=== PATIENT | female | born 1995 | race Caucasian/White ===

== ENCOUNTER → 2021-01-06 14:56 | Outpatient (CLI) | payer OTHER, MEDICAID, SELFPAY ==
[2021-01-06 15:52] LABS: COVID19 -Nasal RAPID Negative (Negative)
== END ==
PROVIDERS: Visit Provider Nurse Practitioner
DX: Z20.822 Contact with and (suspected) exposure to COVID-19 (principal); R05 Cough; J02.9 Acute pharyngitis, unspecified
CPT/HCPCS: 87635

== ENCOUNTER → 2021-02-26 09:25 | Outpatient (CLI) | payer OTHER, MEDICAID, SELFPAY | PROVIDERS: Visit Provider Nurse Practitioner Family | DX: N34.3 Urethral syndrome, unspecified (principal); N89.8 Other specified noninflammatory disorders of vagina | CPT/HCPCS: 81002; 87086; 87210 ==

== ENCOUNTER 2022-08-04 09:02 | Emergency (ER) | payer OTHER, MEDICAID, SELFPAY ==
[2022-08-04 09:05] VITALS: BP 145/86; PULSE 69; RESP 18; TEMP 37; O2SAT 99; BMI 25.8
--- NOTE | 2022-08-04 09:50 | ED.NEUROSD ---
HPI - Neuro Symptoms/Deficit General Chief Complaint: Neuro Symptoms/Deficit Stated Complaint: sent by [facility] one pupil dialated Time Seen by Provider: 08/04/22 09:13 Source: patient Mode of arrival: Wheelchair History of Present Illness HPI Narrative: Patient is a healthy 27-year-old female who presents with right eye abnormality. 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 She said she felt like her right eye was heavy she looked in the rearview mirror on her way to work and notes that her right eye was bigger. She went to the walk-in clinic and then sent here for further evaluation. She is not had any head trauma she has no headache nausea vomiting numbness tingling or weakness. Is not wear corrective lenses. On Anticoagulants: No Related Data Home Medications Medication Instructions Recorded Confirmed No Known Home Medications 08/04/22 08/04/22 Allergies Allergy/AdvReac Type Severity Reaction Status Date / Time No Known Drug Allergies Allergy Verified 08/04/22 09:12 Review of Systems Review of Systems ROS Unobtainable: All systems reviewed & are unremarkable except as noted in HPI and below Hematologic/Lymphatic On Anticoagulants: No Patient History Social History Smoking Status: Former smoker Smoking Status: Former smoker alcohol intake frequency: 0-2 drinks per day Substance Use Type: does not use Exam Initial Vital Signs Initial Vital Signs: Vital Signs Temperature 98.6 F 08/04/22 09:05 Pulse Rate 69 08/04/22 09:05 Respiratory Rate 18 08/04/22 09:05 Blood Pressure 145/86 H 08/04/22 09:05 Pulse Oximetry 99 08/04/22 09:05 Oxygen Delivery Method Room Air 08/04/22 09:05 GENERAL: Alert well-appearing 27-year-old female and in no acute distress. HEENT: Head atraumatic,EOMI, pupils reactive, face symmetric, moist mucous membranes EYE: Right:Extraocular muscles intact right eye pupil size about 7 mm nonreactive to light red reflex intact, ultrasound does not show any retinal detachment or vitreous humor detachment pressure 26mmHg left: EOMI, people equal round and reactive to light, red reflex present, pressure 25mmHg CARDIOVASCULAR: Regular rate and rhythm without murmurs, rubs or gallops. RESPIRATORY: Breath sounds equal bilaterally, no wheezes rales or rhonchi. ABDOMEN: Soft, nontender. Normoactive bowel sounds all 4 quadrants. No guarding or rebound. EXTREMITIES: Normal range of motion, no clubbing or edema. Neurovascularly intact NEUROLOGICAL: Alert and oriented x4.Normal gait and speech. Cranial nerves II through XII grossly intact. Good ggeofc-sx-ngcm, good yjry-vi-dstc, strength equal bilaterally, no dysarthria or aphasia, sensation in tact to soft touch bilaterally, no visual changes, no facial droop SKIN: Warm, dry, no laceration, no petechiae, no rashes or lesions. Course Orders Ordered: ED Orders 08/04/22 10:20 CBC Auto Diff [Complete Blood Count AUTO DIFF] Stat CMP [Comprehensive Metabolic Panel] Stat Discontinued Medications Fluorescein Sodium (Fluorescein 1 Mg Strip) 1 mg EYE-BOTH NOW ONE Stop: 08/04/22 09:57 Last Admin: 08/04/22 10:01 Dose: 1 mg Documented By: OJ Proparacaine HCl (Proparacaine 0.5% Ophth Ashley) 1 drops EYE-BOTH NOW ONE Stop: 08/04/22 09:57 Last Admin: 08/04/22 10:01 Dose: 1 1000units Documented By: OJ Vital Signs Vital signs: Vital Signs - 8 hr 08/04/22 12:30 08/04/22 12:46 08/04/22 12:46 Pulse Rate 68 Blood Pressure 120/71 117/67 Pulse Oximetry 100 MDM - Neuro Symptoms/Deficit Lab Data 08/04/22 10:20 08/04/22 10:20 Labs: Lab Results 08/04/22 08/04/22 Range/Units 10:20 10:20 WBC 6.7 (4.5-11.0) X10^3/uL RBC 4.57 (4.0-5.2) X10^6/uL Hgb 14.0 (12.0-16.0) g/dL Hct 41.1 (36-46) % MCV 89.9 (80-100) fL MCH 30.7 (26-34) PG MCHC 34.1 (30-36) % RDW 13.1 (11.6-14.8) % Plt Count 247 (150-400) X10^3/uL Neut % (Auto) 62.4 (50-75) % Lymph % (Auto) 25.3 (25-40) % [place] % (Auto) 9.2 (3-14) % Eos % (Auto) 2.5 (2-4) % Baso % (Auto) 0.6 (0-2) % Neut # (Auto) 4200 (7880-1829) /uL Lymph # (Auto) 1700 (3144-2673) /uL [place] # (Auto) 600 (0-900) /uL Eos # (Auto) 200 (0-450) /uL Baso # (Auto) 0 (0-100) /uL Sodium 140 (137-145) mmol/L Potassium 3.6 (3.4-5.1) mmol/L Chloride 105 (98-107) mmol/L Carbon Dioxide 26 (22-32) mmol/L BUN 9 (7-17) mg/dL Creatinine 0.66 (0.52-1.04) mg/dL Estimated GFR > 60 (>60) mL/min BUN/Creatinine Ratio 13.6 (6-22) Glucose 88 (70-100) mg/dL Calcium 9.2 (8.4-10.2) mg/dL Total Bilirubin 0.8 (0.2-1.3) mg/dL AST 25 (14-36) IU/L ALT 19 (<35) IU/L Alkaline Phosphatase 74 (38-126) U/L Total Protein 8.2 (6.3-8.2) g/dL Albumin 4.8 (3.5-5.0) g/dL Globulin 3.4 (1.7-4.1) g/dL Albumin/Globulin Ratio 1.4 (1.0-2.8) Point of Care Testing Test Results Negative Urine Dip Bedside Urine Glucose Negative Bedside Urine Bilirubin - Negative Bedside Urine Ketone - Negative Urine Specific [place] 1.010 Bedside Urine Occult Blood - Negative Bedside Urine pH 8.0 Bedside Urine Protein - Negative Bedside Urine Urobilinogen - Negative Bedside Urine Nitrite - Negative Bedside Urine Leukocytes - Negative Esterase Imaging Data CTA - brain/neck: Radiologist's Impression: PROCEDURE:? CT ANGIO HEAD AND NECK ? INDICATIONS:? right dilated pupil no trauma ? TECHNIQUE:? Pre-contrast 4.5 mm thick sections acquired from the foramen magnum to the vertex.? After the administration of intravenous contrast, 1 mm thick sections acquired from the aortic arch through the [place] of [place].? Post-contrast 4.5 mm thick sections then re-acquired from the foramen magnum to the vertex.? 3-dimensional czrtgol-zknioqbbf-fjuxuaopok (MIP) and/or volume rendering reformats were acquired of the central intracranial vasculature and neck separately. For radiation dose reduction, the following was used:? automated exposure control, adjustment of mA and/or kV according to patient size.? ? COMPARISON:? None. ? FINDINGS:? Image quality:? Excellent.? ? BRAIN:? CSF spaces:? Ventricles are normal in size and shape.? Basal cisterns are patent.? No extra-axial fluid collections.? ? Brain:? No midline shift.? No intracranial bleeds or masses.? [place]-white matter interface appears intact.? ? Skull and face:? Calvarium and facial bones appear intact, without suspicious lesions.? Orbits appear normal.? ? Sinuses:? Sinuses and mastoids are clear.? ? HEAD CT ANGIOGRAPHY:? Anterior circulation:? Intracranial internal carotid arteries are normal in size and flow.? The flow within the paired anterior cerebral arteries is normal and symmetric.? The flow within the middle cerebral arteries is normal and symmetric.? The anterior communicating artery is seen.? No aneurysms are seen.? ? Posterior circulation:? Visualized portions of the vertebral arteries demonstrate normal caliber, and join to form a normal appearing basilar artery.? Flow within the posterior cerebral arteries is normal and symmetric.? No aneurysms are seen.? ? NECK CT ANGIOGRAPHY:? Carotid system:? The great vessels demonstrate a conventional anatomy as they arise from the aortic arch.? The origins of the common carotid arteries appear patent.? The common carotid arteries demonstrate normal caliber and courses.? The bifurcation regions are both widely patent.? The internal carotid arteries demonstrate normal calibers and courses.? ? Posterior circulation:? The origins of the vertebral arteries both appear widely patent.? The more superior extracranial portions of both vertebral arteries also demonstrate normal courses and calibers.? They join to form a normal appearing basilar artery.? ? Soft tissues:? Visualized neck soft tissues demonstrate no suspicious abnormalities.? ? Bones:? No suspicious bony lesions.? Visualized cervical spine appears normally aligned.? IMPRESSION:? ? 1. No acute intracranial process. ? 2. No areas of hemodynamically significant stenosis, vascular occlusion or aneurysmal dilation within the anterior circulation. ? 3. No areas of hemodynamically significant stenosis, vascular occlusion or aneurysmal dilation within the posterior circulation. ? 4. No areas of hemodynamically significant stenosis, vascular occlusion or aneurysmal dilation within the neck vasculature. ? Any quantitative measurements of stenosis were performed using NASCET criteria.? ? ? Dictated by: Batsheva Shultz M.D. on 08/04/2022 at 11:41 ?? MDM Narrative Medical decision making narrative: Patient 27-year-old female who has fixed dilated right pupil around 7 mm is nonreactive to light. Left eye is reactive. CT angio does not show any kind of aneurysm. Pressures are within normal limits extraocular muscles are intact. Patient is asked multiple times there thin any chemical in her eye which would explain a pharmacologic nonreactive dilated pupil. However she is adamant that she did not put anything or rub her eye. 12:30 Dr. Mendosa on-call quill picking machine operator cases discussed reports that patient would probably benefit from in exam however she does not take the patient's insurance. And she recommends that patient be seen at [facility] 12:40 [facility] senior linux unix administrator is updated on patient she has spoken to Dr. Hui who agrees to see the patient at 3:25 p.m. Discharge Plan Departure Patient Disposition: Home Clinical Impression: Fixed dilated pupil of right eye Instructions: DI for Visual Field Disturbances Activity Restrictions/Additional Instructions: You have an appointment today at [facility], in [place], Dr. Hui at 3:25 p.m. At this time workup in the emergency department does not show any abnormality. Concern that there may be some chemical or something in her eye. He will need to see a specific quill picking machine operator for further eye evaluation [address] [place] [address] Phone:[phone] Prescriptions: No Action No Known Home Medications Referrals: Li Lemus, TELECOM SPECIALIST-BC [Primary Care Provider] - Stand Alone Forms: Patient Portal/API
[2022-08-04] MEDS: PROPARACAINE 0.5% OPHTH SOL 1 DROPS EYE-BOTH (10:01)
[2022-08-04] MEDS: FLUORESCEIN 1 MG STRIP EYE-BOTH (10:01)
--- NOTE | 2022-08-04 10:11 | DI.CT.S_ITS ---
PROCEDURE: CT ANGIO HEAD AND NECK INDICATIONS: right dilated pupil no trauma TECHNIQUE: Pre-contrast 4.5 mm thick sections acquired from the foramen magnum to the vertex. After the administration of intravenous contrast, 1 mm thick sections acquired from the aortic arch through the [place] of [place]. Post-contrast 4.5 mm thick sections then re-acquired from the foramen magnum to the vertex. 3-dimensional cxlbeoq-knfuniatf-mwpnidinpg (MIP) and/or volume rendering reformats were acquired of the central intracranial vasculature and neck separately. For radiation dose reduction, the following was used: automated exposure control, adjustment of mA and/or kV according to patient size. COMPARISON: None. FINDINGS: Image quality: Excellent. BRAIN: CSF spaces: Ventricles are normal in size and shape. Basal cisterns are patent. No extra-axial fluid collections. Brain: No midline shift. No intracranial bleeds or masses. [place]-white matter interface appears intact. Skull and face: Calvarium and facial bones appear intact, without suspicious lesions. Orbits appear normal. Sinuses: Sinuses and mastoids are clear. HEAD CT ANGIOGRAPHY: Anterior circulation: Intracranial internal carotid arteries are normal in size and flow. The flow within the paired anterior cerebral arteries is normal and symmetric. The flow within the middle cerebral arteries is normal and symmetric. The anterior communicating artery is seen. No aneurysms are seen. Posterior circulation: Visualized portions of the vertebral arteries demonstrate normal caliber, and join to form a normal appearing basilar artery. Flow within the posterior cerebral arteries is normal and symmetric. No aneurysms are seen. NECK CT ANGIOGRAPHY: Carotid system: The great vessels demonstrate a conventional anatomy as they arise from the aortic arch. The origins of the common carotid arteries appear patent. The common carotid arteries demonstrate normal caliber and courses. The bifurcation regions are both widely patent. The internal carotid arteries demonstrate normal calibers and courses. Posterior circulation: The origins of the vertebral arteries both appear widely patent. The more superior extracranial portions of both vertebral arteries also demonstrate normal courses and calibers. They join to form a normal appearing basilar artery. Soft tissues: Visualized neck soft tissues demonstrate no suspicious abnormalities. Bones: No suspicious bony lesions. Visualized cervical spine appears normally aligned. IMPRESSION: 1. No acute intracranial process. 2. No areas of hemodynamically significant stenosis, vascular occlusion or aneurysmal dilation within the anterior circulation. 3. No areas of hemodynamically significant stenosis, vascular occlusion or aneurysmal dilation within the posterior circulation. 4. No areas of hemodynamically significant stenosis, vascular occlusion or aneurysmal dilation within the neck vasculature. Any quantitative measurements of stenosis were performed using NASCET criteria. Dictated by: Batsheva Shultz M.D. on 08/04/2022 at 11:41 Approved by: Batsheva Shultz M.D. on 08/04/2022 at 11:49
[2022-08-04 10:32] LABS: Add Manual Diff / Slide Review NO; Basophils Absolute Auto 0 /uL (0-100); Basophils Percent Auto 0.6 % (0-2); Eosinophils Absolute Auto 200 /uL (0-450); Eosinophils Percent Auto 2.5 % (2-4); Hematocrit 41.1 % (36-46); Lymphocytes Absolute Auto 1700 /uL (1100-4500); Lymphocytes Percent Auto 25.3 % (25-40); Mean Corpuscular HGB Conc 34.1 % (30-36); Mean Corpuscular Hemoglobin 30.7 PG (26-34); Mean Corpuscular Volume 89.9 fL (80-100); Monocytes Absolute Auto 600 /uL (0-900); Monocytes Percent Auto 9.2 % (3-14); Neutrophils Absolute Auto 4200 /uL (1500-7000); Neutrophils Percent Auto 62.4 % (50-75); Platelet Count 247 X10^3/uL (150-400); Red Blood Cell Count 4.57 X10^6/uL (4.0-5.2); Red Cell Distribution Width 13.1 % (11.6-14.8); White Blood Cell Count 6.7 X10^3/uL (4.5-11.0)
[2022-08-04 10:40] LABS: Alanine Aminotransferase 19 IU/L (<35); Albumin 4.8 g/dL (3.5-5.0); Albumin Globulin Ratio 1.4 (1.0-2.8); Alkaline Phosphatase 74 U/L (38-126); Aspartate Aminotransferase 25 IU/L (14-36); BUN Creatinine Ratio 13.6 (6-22); Bilirubin Total 0.8 mg/dL (0.2-1.3); Blood Urea Nitrogen 9 mg/dL (7-17); Calcium 9.2 mg/dL (8.4-10.2); Carbon Dioxide 26 mmol/L (22-32); Chloride 105 mmol/L (98-107); Estimated Glomerular Filt Rate > 60 mL/min (>60); Globulin 3.4 g/dL (1.7-4.1); Glucose 88 mg/dL (70-100); HEMOLYSIS < 15 (0-50); Potassium 3.6 mmol/L (3.4-5.1); Sodium 140 mmol/L (137-145); Total Protein 8.2 g/dL (6.3-8.2)
[2022-08-04 12:30] VITALS: BP 120/71
--- NOTE | 2022-08-04 12:35 | PC.NURSE ---
Pt called nurse into room via call light. states she just wanted to update us, we had asked her repeatedly about having a headache when she arrived. she did not have one at the time but does now. she describes it has a tension headache at the back of her neck rated 4/10
[2022-08-04 12:46] VITALS: BP 117/67; PULSE 68; O2SAT 100
== END 2022-08-04 12:53 | disposition home or self-care (01) ==
PROVIDERS: Emergency Provider Emergency Medicine; PCP Nurse Practitioner Family
DX: H57.04 Mydriasis (principal)
CPT/HCPCS: 36415; 70496; 70498; 80053; 81003; 81025; 85025; 99284; Q9967